=== PATIENT | male | born 1990 | race Caucasian/White ===

== ENCOUNTER → 2016-06-04 | Outpatient (CLI) | payer BC ==
[~2016-06-04] MED LIST: DORZ1SOL6 OPL
--- NOTE | 2016-06-04 17:22 | DIAGNOSTIC IMAGING REPORT ---
KUB HISTORY: Nephrolithiasis. Flank pain. COMPARISON: None. FINDINGS: Mildly dilated air-filled loops of large and small bowel seen within the abdomen. This favors an ileus. No evidence for bowel obstruction. Left renal shadow is partially obscured by overlying bowel gas. There is a 3 mm stone within the left kidney. Multiple right renal calculi with the largest in the upper pole measuring 4 mm. No ureteral or bladder calculi. No pneumoperitoneum or pneumatosis. IMPRESSION: Bilateral nephrolithiasis. No ureteral or bladder calculi. Electronically signed by: Nitish Hoover M.D. 06/04/2016 5:20 PM Dictated Date/Time: 06/04/2016 5:18 PM
== END | disposition home or self-care (01) ==
LOC: C.RAD 16:47
PROVIDERS: ATTEND Urology
DX: N20.0 Calculus of kidney (principal)

== ENCOUNTER 2016-12-12 13:29 | Emergency (ER) | payer BC ==
[~2016-12-12] VITALS: Ht 182.9 cm; Wt 65.5 kg
[2016-12-12 13:32] VITALS: BP 134/74; TEMP 36.6; Ht 182.9 cm; Wt 65.5 kg
[2016-12-12] MEDS ORDERED: PROPARACAINE HCL 0.5% OP SOLN 15 ML BTL ONE (14:41)
--- NOTE | 2016-12-12 16:05 | EMERGENCY ROOM VISIT NOTE ---
ED Visit Note First contact with patient: 16:04 This Patient was discussed with the physician Geology Instructor, Mely Hudson PA-C. The pertinent historical and physical exam findings were confirmed. I agree with the studies ordered and with the interpretations of these studies. I agree with the disposition and care plan.
[2016-12-12] MEDS ORDERED: DORZ1SOL6 OPL (16:18)
--- NOTE | 2016-12-12 16:20 | EMERGENCY ROOM VISIT NOTE ---
ED Visit Note First contact with patient: 13:45 CHIEF COMPLAINT: Left eye injury this afternoon HISTORY OF PRESENT ILLNESS: Patient is a 26-year-old white male who presents to emergency department for evaluation of an injury to his left eye. He was referred to the emergency department from [facility]. Patient reports that he was wearing his contact lenses and was fishing earlier today. Got caught and when he pulled on it, the line snapped back, and the sinker struck him across the left eye. He noted some discomfort and tearing initially , which shortly thereafter resolved. He went home and took out his contact lenses, and did notice some injection of the conjunctiva and that his pupil looked a little bit irregular. His vision was a little blurry in the left eye, so he went to [facility] where they examined him and instructed him to the emergency department. He denies any pain or photophobia. He does note that the vision in the left eye is slightly cloudy or blurry. There was no laceration or bleeding. He denies any facial pain. No other injuries are noted. No headache, nausea or vomiting. REVIEW OF SYSTEMS: Review of systems as per HPI. All other systems reviewed were negative. At least 6 systems reviewed. PMH: Electronic medical records are reviewed and summarized as above/below. See Problem List. SOCIAL HISTORY: Patient lives at home. 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 He does not smoke. PHYSICAL EXAM: Vital Signs: Reviewed Nurse's notes. GENERAL: Patient is a pleasant, well-appearing 26-year-old white male who is awake and alert and in no acute distress. VISUAL ACUITY: 20/30 in the right eye, 20/50 in the left eye with glasses. Intraocular pressures measured with the automatic tonometer averaged 18 in the right eye and 34 in the left eye. EYES: Right pupil is round , reactive to light and accommodation. Left pupil is dilated, slightly fixed and irregular. He does have a slight some conjunctival hemorrhage/injection noted in the lateral aspect of the eye. There is a superficial abrasion/area of ecchymosis over the upper eyelid ascending to the lid margin, but no gaping laceration or no active bleeding. Slit-lamp exam did not demonstrate any corneal foreign body. There was no obvious hyphema. There is no fluorescein uptake with ultraviolet light. EMERGENCY DEPARTMENT COURSE: The patient was seen and assessed as above by myself and by Dr. Bruce. Dr. Etienne of ophthalmology was contacted and the patient was discussed with him over the phone. Given the intraocular pressure, he did recommend dorzolamide/timolol drops, and follow up with him in the office in 48 hours. Patient was made aware of the treatment plan and recommendations and was in agreement. He was educated on the worrisome signs or symptoms for which he should contact ophthalmology. He was otherwise advised to rest and avoid any strenuous activity until he can see seen by ophthalmology. He expressed understanding of this and was agreeable. He was discharged home in good condition. Medication reconciliation: I attest that I have personally reviewed the patient' s current medication list. Blood pressure screening : Patient was found to have normal blood pressure on screening and does not require follow-up. Problem List Medical Problems: (1) Calculus Of Kidney Status: Chronic Current/Historical Medications Scheduled Dorzolamide Hcl-Timolol Maleat (Cosopt Oph), 1 DROPS OPL BID Allergies Coded Allergies: No Known Allergies (Unverified , 12/12/16) Vital Signs Date Time Temp Pulse Resp B/P (MAP) Pulse Ox O2 Delivery O2 Flow Rate FiO2 12/12/16 16:28 69 16 98 12/12/16 13:32 36.6 87 20 134/74 100 Room Air Departure Information Impression Primary Impression: Traumatic iritis Prescriptions Dorzolamide Hcl-Timolol Maleat (COSOPT OPH) 1 Danielle Danielle 1 DROPS OPL BID, #10 ML 3 Refills Prov: Zenaida Hudson PA 12/12/16 Referrals Ricardo Stewart MD (PCP) Waldo Conway MD Patient Instructions My [facility] Additional Instructions Cosopt eye drops : 1 drop in the left eye twice daily. Wear glasses only. Cool compresses as needed for discomfort. Rest and avoid any heavy lifting, contact sports or strenuous activity. Follow-up with Dr. Conway on Wednesday. Call his office to make a follow-up appointment. Notify office staff that you were seen in the emergency department and instructed to see Dr. Conway on Wednesday. Contact Dr. Conway at any point over the weekend should he develop increasing eye pain, worsening vision, nausea, headaches or or any other concerns. Return to the emergency department as needed.
[2016-12-12 16:28] VITALS: PULSE 69; O2SAT 98
== END 2016-12-12 16:28 | disposition home or self-care (01) ==
LOC: C.EDB 13:31 → C.EDD 16:28
DX: H20.9 Unspecified iridocyclitis (principal); S05.12XA Contusion of eyeball and orbital tissues, left eye, initial encounter; W22.8XXA Striking against or struck by other objects, initial encounter; Y92.89 Other specified places as the place of occurrence of the external cause; Y93.89 Activity, other specified; Z87.442 Personal history of urinary calculi